=== PATIENT | female | born 1990 | race Caucasian/White ===

== ENCOUNTER 2016-06-17 11:53 | Observation (INO) ==
[2016-06-17] MEDS ORDERED: Ammonia Inhalant AMPUL ONE (12:05)
[2016-06-17] MEDS ORDERED: *HR* LORazepam 2 MG/ML VIAL ONE ×2 (12:18→15:21)
--- NOTE | 2016-06-17 12:20 | Emergency Department Note ---
Disposition Clinical Impression: Seizure Disposition: Admitted As Inpatient Seizure HPI - General Chief Complaint: ED Seizure Stated Complaint: seizure Time Seen by Provider: 06/17/16 12:00 Source: patient, EMS Limitations: no limitations Nursing Notes Reviewed: Yes Vital Signs Reviewed: Yes - History of Present Illness HPI Narrative: Mrs. Erickson, a 25yo female, presents from work via EMS with reports of seizure activity. 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 Hx Postural Orthostatic Tachycardia Syndrome. Patient's friend, Nuzhat, is bedside. Per Nuzhat, patient had 2 seizures at school. Per EMS, they were witnissed by a fork lift technician at school - described as tonic- clonic with post-ictal state. Patient had a 3rd seizure as EMS was loading her onto the gurney. They described tonic-clonic with left sided posturing. Spoke with the patient's husbandvia phone, Del. Patient has had seizures 1-2x/ year x 8yrs. Currently unmedicated. Has had neurology work-up which did not find a cause. Neurologist = Dr. Ta. - Related Data Home Medications Medication Instructions Recorded Confirmed Acyclovir [Zovirax] 800 mg PO BID PRN 10/31/15 06/17/16 Citalopram Hydrobromide 40 mg PO DAILY 10/31/15 06/17/16 [Citalopram HBr] LORazepam [Ativan] 0.5 mg PO HS 10/31/15 06/17/16 Norgestimate-Ethinyl Estradiol 1 each PO DAILY 10/31/15 06/17/16 [Sprintec 28 Day Tablet] Acetaminophen [Tylenol] 1,000 mg PO Q6HR PRN 06/17/16 06/17/16 Levocetirizine Dihydrochloride 5 mg PO QPM 06/17/16 06/17/16 [Xyzal] Modafinil [Provigil] 100 mg PO BID 06/17/16 06/17/16 Allergies Allergy/AdvReac Type Severity Reaction Status Date / Time Penicillins Allergy Rash Verified 02/24/15 07:40 Limitations: ROS unobtainable due to patients medical condition Past Medical History - Past Medical History Medical history: Reports: non-contributory, asthma, seizures, other Surgical history: Reports: other Psychiatric history: Reports: depression EXERCISE EQUIPMENT SPECIALIST history: Reports: no EXERCISE EQUIPMENT SPECIALIST history - Social History Smoking Status: Never smoker Smokeless Tobacco Status: No Alcohol use: Reports: occasionally Drug use: Reports: none Physical Exam General: Patient is post-ictal (not alert, not oriented, unable to answer questions) and in no acute distress. HEENT: No facial asymmetry. Head is normocephalic and atraumatic. PERRLA, EOMI. Nasal turbinates moist and pink. Trachea midline. Cardiovascular: Heart regular rate and rhythm without clicks, rubs, gallops, or murmurs. No JVD. PMI nondisplaced. Respiratory: Symmetric chest rise with good respiratory effort. Bilateral breath sounds are clear without wheezing, crackles, or rhonchi. Abdomen: Bowel sounds present normoactive x-4 quadrants. Abdomen is soft, nondistended, and nontender. No organomegaly noted. Musculoskeletal: Patient spontaneously moves all extremities. Psych: Patient's affect is appropriate for situation. - General Limitations: no limitations General appearance: lethargic Course Course Narrative: Will work patient up for both seizure and sepsis (given her fever). On presentation, patient post-ictal - no response to aggressive sternal rub, no response to peripheral IV insertion, did not protect herself with arm drop onto head/face. PAtient awoke after several seconds of smelling salts - she was very confused wtih fearful look in her eyes, was non-verbal (could not tell us her name or her husbands name), but would somewhat respond to simple commands ( i.e. squeeze my hand). Patient had a 4th seizure while in the ED - began with patient staring straight at ceiling, tonic clonic rhythmic symmetric, left sided posturing, regular deep breathing. 12:23 Called patient's . He is able to leave work at 2:15pm. Patient has had seizures 1-2x/year for the past 8 years. She is followed by Dr. Ta Ashley neurology. Has had negative workup in the past. Is not currently medicated for seizure. Discussed with Del our concern for her fever plus seizure. We discussed indications, contraindications, risks, and benefits of lumbar puncture. He verbally agrees to allow the procedure. 14:[address] head without contrast returned showing no acute abnormalities. Repeated patient's temperature with oral thermometer; she was afebrile. After checking, her initial temperature which showed a fever was taken by temporal thermometer. Given the lack of reliability of a temporal thermometer I do not trust that measurement. She did received single dose of empiric antibiotics and did not receive any acetaminophen or ibuprofen. Patient does have intermittent unmedicated history of seizure for which today's events are by far the most severe, I do not trust her initial temperature taken by forehead and do trust repeat temperature by mouth. Because repeat temperature was afebrile, my suspicion for central nervous system infection is substantially reduced. Thus, I will not perform a lumbar puncture at this time as the risks in this afebrile patient outweigh the benefits. We will discuss this with the patient' s once he arrives. 14:30 Spoke with patient's at bedside regarding our findings thus far as well as the patient's afebrile state. He agrees to not perform a lumbar puncture at this time. Patient is awake, oriented, answering questions appropriately, very fatigued. She is neurologically intact on repeat physical exam at this time. We will page Dr. Soler for recommendations on admission for further workup versus discharge with [facility]. 15:[address] Ta: recommends admission to hospitalist with neuro following. Loading dose of dilantin 1g IV today followed by 300mg IV QDaily maintenance beginning tomorrow. Also recommends MRI and EEG. Vital Signs Temperature 101.1 F H 06/17/16 11:56 Pulse Rate 72 06/17/16 11:56 Respiratory Rate 12 06/17/16 11:56 Blood Pressure 137/92 06/17/16 11:56 O2 Sat by Pulse Oximetry 98 06/17/16 11:56 Temperature 97.9 F 06/17/16 17:15 Pulse Rate 95 06/17/16 17:15 Respiratory Rate 15 06/17/16 17:15 Blood Pressure 113/73 06/17/16 17:15 O2 Sat by Pulse Oximetry 99 06/17/16 17:15 Oxygen Delivery Oxygen Delivery Room Air Seizure - Lab Data Result diagrams: 06/17/16 12:32 06/17/16 12:32 Lab Results 06/17/16 06/17/16 06/17/16 Range/Units 12:00 12:00 12:01 WBC (4.3-11.1) K/mcL RBC (3.82-4.97) M/mcL Hgb (11.5-15.4) g/dL Hct (35.3-44.9) % MCV (83.0-100.0) fL MCH (28.0-33.3) pg MCHC (31.6-35.5) g/dL RDW (11.5-14.5) % Plt Count (140-400) K/mcL MPV (9.4-12.4) fL Immature Gran % (0-4) % Seg Neutrophils % % Lymphocytes % % Monocytes % % Eosinophils % % Basophils % % Neutrophils # (1.6-8.9) K/mcL Lymphocytes # (0.6-4.6) K/mcL Monocytes # (0.0-1.3) K/mcL Eosinophils # (0.0-0.6) K/mcL Basophils # (0.0-0.2) K/mcL PT (9.4-12.1) Seconds INR APTT (26.0-36.0) Seconds Sodium (136-145) mEq/L Potassium (3.5-4.5) mEq/L Chloride (98-109) mEq/L Carbon Dioxide (19-29) mEq/L BUN (7-20) mg/dL Creatinine (0.57-1.11) mg/dL Est GFR ( Amer) (> 60) Est GFR (Non-Af Amer) (> 60) BUN/Creatinine Ratio (6-26) Glucose (70-99) mg/dL POC Glucose 101 H (58-89) Calculated Osmolality (280-300) Lactic Acid (0.5-2.2) mmol/L Calcium (8.6-10.8) mg/dL Phosphorus (2.3-4.7) mg/dL Magnesium (1.6-2.6) mg/dL Urine Color Yellow (Yellow) Urine Clarity Clear (Clear) Urine pH 7.5 (5.0-8.0) pH Units Ur Specific [place] 1.012 (1.010-1.025) Urine Protein Negative (Neg-Trace) mg/dL Urine Glucose (UA) Normal (Normal) mg/dL Urine Ketones Negative (Negative) mg/dL Urine Blood Negative (Negative) Urine Nitrite Negative (Negative) Urine Bilirubin Negative (Negative) Urine Urobilinogen Normal (Normal) mg/dL Ur Leukocyte Esterase Negative (Negative) Urine Opiates Screen Negative (Wlyldj=232) ng/mL Ur Barbiturates Screen Negative (Wjaxbt=617) ng/mL Ur Phencyclidine Scrn Negative (Cutoff=25) ng/mL Ur Amphetamines Screen Negative (Tloocb=3965) ng/mL U Benzodiazepines Scrn Negative (Unibeo=579) ng/mL Urine Cocaine Screen Negative (Cutoff= 300) ng/mL U Marijuana (THC) Screen Negative (Cutoff = 50) ng/mL 06/17/16 06/17/16 06/17/16 Range/Units 12:32 12:32 13:25 WBC 6.4 (4.3-11.1) K/mcL RBC 4.32 (3.82-4.97) M/mcL Hgb 13.4 (11.5-15.4) g/dL Hct 38.7 (35.3-44.9) % MCV 89.6 (83.0-100.0) fL MCH 31.0 (28.0-33.3) pg MCHC 34.6 (31.6-35.5) g/dL RDW 11.9 (11.5-14.5) % Plt Count 234 (140-400) K/mcL MPV 9.5 (9.4-12.4) fL Immature Gran % 0.2 (0-4) % Seg Neutrophils % 67.5 % Lymphocytes % 23.5 % Monocytes % 5.5 % Eosinophils % 2.8 % Basophils % 0.5 % Neutrophils # 4.3 (1.6-8.9) K/mcL Lymphocytes # 1.5 (0.6-4.6) K/mcL Monocytes # 0.4 (0.0-1.3) K/mcL Eosinophils # 0.2 (0.0-0.6) K/mcL Basophils # 0.0 (0.0-0.2) K/mcL PT 11.7 (9.4-12.1) Seconds INR 1.1 APTT 29.7 (26.0-36.0) Seconds Sodium 137 (136-145) mEq/L Potassium 4.2 (3.5-4.5) mEq/L Chloride 109 (98-109) mEq/L Carbon Dioxide 19 (19-29) mEq/L BUN 12 (7-20) mg/dL Creatinine 0.83 (0.57-1.11) mg/dL Est GFR ( Amer) > 60 (> 60) Est GFR (Non-Af Amer) > 60 (> 60) BUN/Creatinine Ratio 14 (6-26) Glucose 96 (70-99) mg/dL POC Glucose (58-89) Calculated Osmolality 284 (280-300) Lactic Acid (0.5-2.2) mmol/L Calcium 9.1 (8.6-10.8) mg/dL Phosphorus (2.3-4.7) mg/dL Magnesium (1.6-2.6) mg/dL Urine Color (Yellow) Urine Clarity (Clear) Urine pH (5.0-8.0) pH Units Ur Specific [place] (1.010-1.025) Urine Protein (Neg-Trace) mg/dL Urine Glucose (UA) (Normal) mg/dL Urine Ketones (Negative) mg/dL Urine Blood (Negative) Urine Nitrite (Negative) Urine Bilirubin (Negative) Urine Urobilinogen (Normal) mg/dL Ur Leukocyte Esterase (Negative) Urine Opiates Screen (Rxgjrp=308) ng/mL Ur Barbiturates Screen (Dlybjw=729) ng/mL Ur Phencyclidine Scrn (Cutoff=25) ng/mL Ur Amphetamines Screen (Lsvxqq=5475) ng/mL U Benzodiazepines Scrn (Frciow=933) ng/mL Urine Cocaine Screen (Cutoff= 300) ng/mL U Marijuana (THC) Screen (Cutoff = 50) ng/mL 06/17/16 06/17/16 06/17/16 Range/Units 13:25 13:25 15:52 WBC (4.3-11.1) K/mcL RBC (3.82-4.97) M/mcL Hgb (11.5-15.4) g/dL Hct (35.3-44.9) % MCV (83.0-100.0) fL MCH (28.0-33.3) pg MCHC (31.6-35.5) g/dL RDW (11.5-14.5) % Plt Count (140-400) K/mcL MPV (9.4-12.4) fL Immature Gran % (0-4) % Seg Neutrophils % % Lymphocytes % % Monocytes % % Eosinophils % % Basophils % % Neutrophils # (1.6-8.9) K/mcL Lymphocytes # (0.6-4.6) K/mcL Monocytes # (0.0-1.3) K/mcL Eosinophils # (0.0-0.6) K/mcL Basophils # (0.0-0.2) K/mcL PT (9.4-12.1) Seconds INR APTT (26.0-36.0) Seconds Sodium (136-145) mEq/L Potassium (3.5-4.5) mEq/L Chloride (98-109) mEq/L Carbon Dioxide (19-29) mEq/L BUN (7-20) mg/dL Creatinine (0.57-1.11) mg/dL Est GFR ( Amer) (> 60) Est GFR (Non-Af Amer) (> 60) BUN/Creatinine Ratio (6-26) Glucose (70-99) mg/dL POC Glucose (58-89) Calculated Osmolality (280-300) Lactic Acid 1.3 1.2 (0.5-2.2) mmol/L Calcium (8.6-10.8) mg/dL Phosphorus 2.3 (2.3-4.7) mg/dL Magnesium 1.7 (1.6-2.6) mg/dL Urine Color (Yellow) Urine Clarity (Clear) Urine pH (5.0-8.0) pH Units Ur Specific [place] (1.010-1.025) Urine Protein (Neg-Trace) mg/dL Urine Glucose (UA) (Normal) mg/dL Urine Ketones (Negative) mg/dL Urine Blood (Negative) Urine Nitrite (Negative) Urine Bilirubin (Negative) Urine Urobilinogen (Normal) mg/dL Ur Leukocyte Esterase (Negative) Urine Opiates Screen (Gvilco=569) ng/mL Ur Barbiturates Screen (Uvcjfv=236) ng/mL Ur Phencyclidine Scrn (Cutoff=25) ng/mL Ur Amphetamines Screen (Lfixvs=0967) ng/mL U Benzodiazepines Scrn (Rvwizl=651) ng/mL Urine Cocaine Screen (Cutoff= 300) ng/mL U Marijuana (THC) Screen (Cutoff = 50) ng/mL - EKG Data EKG attestation: Yes I reviewed and interpreted this EKG. EKG results narrative: EKG dated 06/17/16 at 4.01 shows sinus rhythm with a rate of 84. Normal intervals. Normal axis. Nonspecific ST-T changes. Compared to previous dated 01/24/2013 at 17:31 showed no acute ischemic changes in comparison. Critical Care Time Critical Care Time: Yes Total Critical Care Time: 35 Attestation: Critical care performed: Time is exclusive of separately billable procedures. Time includes: direct patient care, patient reassessment, coordination of patient care, interpretation of data (laboratory data, radiology data, and respiratory data), review of patient's medical records, medical consultation and documentation of patient care. Procedures included in critical care time: Procedures excluded from critical care time:
[2016-06-17] MEDS ORDERED: 0.9 % Sodium Chloride 1,000 ML IVC ONE (12:21)
--- NOTE | 2016-06-17 12:27 | Emergency Department Note ---
START Narrative - START START: I examined this patient and my medical decision-making was reviewed with the [employer] OFFICE INSTALLER/PA/Advanced Practice Nurse/Resident Physician. I agree with the documented findings, disposition and treatment plan as described except to the extent set forth below. Patient presents to the emergency department with a chief complaint of seizure. 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 She had one after arrival here. Described as generalized shaking. She never woke up fully in between. On examination she is altered. Not speaking. Garza in. Shortly after arrival she did have a full tonic-clonic seizure. Abdomen soft lungs clear. She is noted to be febrile 101. Plan. Septic workup. Concern because she does seizure with her fever. Discussing lumbar puncture with her significant other at this time. Patient reevaluated. Lumbar puncture deferred as the patient is not febrile. Her initial temperature was taken with a temporal thermometer and is felt to be inaccurate. Her labs unremarkable. Her lactates normal. Her white count is normal. There is no left shift. Repeat temperature orally is 98. Patient discussed with neurology who will admit. She does have a documented history of seizures. Loading with Dilantin at this time.
[2016-06-17 12:40] LABS: Basophils % 0.5 %; Eosinophils # 0.2 K/mcL (0.0-0.6); Eosinophils % 2.8 %; Hematocrit 38.7 % (35.3-44.9); Hemoglobin 13.4 g/dL (11.5-15.4); Immature Granulocytes % 0.2 % (0-4); Lymphocytes # 1.5 K/mcL (0.6-4.6); Lymphocytes % 23.5 %; Mean Corpuscular HGB Conc 34.6 g/dL (31.6-35.5); Mean Corpuscular Volume 89.6 fL (83.0-100.0); Mean Platelet Volume 9.5 fL (9.4-12.4); Monocytes # 0.4 K/mcL (0.0-1.3); Monocytes % 5.5 %; Neutrophils # 4.3 K/mcL (1.6-8.9); Platelet Count 234 K/mcL (140-400); Red Blood Count 4.32 M/mcL (3.82-4.97); Red Cell Distribution Width 11.9 % (11.5-14.5); Segmented Neutrophils % 67.5 %
[2016-06-17 12:52] LABS: BUN/Creatinine Ratio 14 (6-26); Blood Urea Nitrogen 12 mg/dL (7-20); Calcium 9.1 mg/dL (8.6-10.8); Carbon Dioxide 19 mEq/L (19-29); Chloride 109 mEq/L (98-109); Glucose 96 mg/dL (70-99); Osmolality,Calculated 284 (280-300); Potassium 4.2 mEq/L (3.5-4.5); Sodium 137 mEq/L (136-145); eGFR For African Americans > 60 (> 60); eGFR For Non-African Americans > 60 (> 60)
[2016-06-17 13:30] LABS: INR 1.1; Prothrombin Time 11.7 Seconds (9.4-12.1)
[2016-06-17 13:32] LABS: Activated Partial Thrombo Time 29.7 Seconds (26.0-36.0)
[2016-06-17 14:04] LABS: Magnesium 1.7 mg/dL (1.6-2.6); Phosphorous 2.3 mg/dL (2.3-4.7)
[2016-06-17 14:42] LABS: Bilirubin,Urine Negative (Negative); Blood,Urine Negative (Negative); Clarity,Urine Clear (Clear); Color,Urine Yellow (Yellow); Glucose,Urine (UA) Normal (Normal); Ketones,Urine Negative (Negative); Leukocyte Esterase,Urine Negative (Negative); Nitrite,Urine Negative (Negative); PH,Urine 7.5 pH Units (5.0-8.0); Protein,Urine Negative (Neg-Trace); Specific Gravity,Urine 1.012 (1.010-1.025); Urobilinogen,Urine Normal (Normal)
[2016-06-17 14:49] LABS: Amphetamine Screen,Urine Negative ng/mL (Cutoff=1000); Barbiturate Screen,Urine Negative ng/mL (Cutoff=200); Benzodiazepines Screen,Urine Negative ng/mL (Cutoff=200); Cannabinoid Screen,Urine Negative ng/mL (Cutoff = 50); Cocaine Screen,Urine Negative ng/mL (Cutoff= 300); Opiate Screen,Urine Negative ng/mL (Cutoff=300); Phencyclidine Screen,Urine Negative ng/mL (Cutoff=25)
--- NOTE | 2016-06-17 14:52 | Electrocardiograph Report ---
[facility] Test Date: 2016-06-17 Pat Name: Lisa Lechuga Department: 105 Room: Gender: F Rn Radiation Oncology: PEDRO : 1990 Requested By: Rambo Crabtree Order Number: [id number] Reading MD: Matias Cutler MD Measurements Intervals [place] Rate: 84 P: 40 MA: 130 QRS: 50 QRSD: 81 T: 37 QT: 399 QTc: 439 Interpretive Statements SINUS RHYTHM WITH SINUS ARRHYTHMIA poor r wave progression Electronically Signed On 06-17-16 14:51:12 EST by Matias Cutler MD
[2016-06-17] MEDS ORDERED: *HR* LORazepam 2 MG/ML VIAL IVP ONE ×2 (15:20→18:34)
[2016-06-17] MEDS ORDERED: Phenytoin 1,000 MG in SYRINGE 1 EACH IVPB ONE (15:21)
[2016-06-17] MEDS ORDERED: Acetaminophen 325 MG TABLET PO PRN (17:12)
[2016-06-17] MEDS ORDERED: Ondansetron 4 MG/2 ML VIAL IVP PRN (17:12)
[2016-06-17] MEDS ORDERED: Naloxone 0.4 MG/ML INJ IVP PRN (17:12)
[2016-06-17] MEDS ORDERED: MOM Conc 10 ML UD.LIQ PO PRN (17:12)
[2016-06-17] MEDS ORDERED: *HR* HYDROcodone/Acet 5/325 mg TABLET PO PRN (17:12)
--- NOTE | 2016-06-17 17:22 | Internal Med History&Physical ---
<Thu Retana Ricco - Last Filed: 06/17/16 17:17> Date of Encounter: 06/17/16 Time of Encounter: 16:30 Assessment and Plan (1) Breakthrough seizure Current visit: Yes Status: Chronic Pt had 3 seizures at work and 2 while in the ED. Witness describes them as tonic clonic. VS wnl, with the exception of initial temp in ED of 101.1 temporal and HR of 130 on arrival to ED. Pt vs stable during exam, pulse 94 and NSR on bedside monitor, BP 115/61, resps approx 12, and pt is 97% on room air. Pt has not been medicated for seizures in the past, despite having 1-2/year for the last 8 years. relates that in 2009 pt had a "several day EEG" that revealed no new results. Pt also had recent sleep study and was placed on Provigil for hypersomnia. Seizure precautions Cardiac monitoring Keppra 500mg po bid Neurology consult IR consult for lumbar puncture Internal Medicine - H&P: HPI Admitted From: Home Plans for Post Hospital Care: Home History of present illness: Ms. Lechuga is a 25 year old female with h/o seizures, gastric ulcer with hemorrhage, blood loss anemia, and COSTELLO, who presents to ED today with 3 seizures while at work. Pt had 2 more while in ED. REceived total of 6mg Ativan IV. Pt is slightly arouseable to physical stimuli, but is drowsy. at answers all questions. Pt has had 1-2 seizures every year for the last 8 yrs, no known cause. states that pt sees Dr. Ta here at [place]. Recent sleep study results with possible narcolepsy and pt was placed on Provigil. states that is her only recent change and that sometimes the seizures can be triggered by stress, however he denies any changes in pt's stress level recently. Pt received Dilantin 1 gram IV and Rocephin 2 grams in ED. Rocephin for recorded fever. denies recent illness. Past Med Surg Social Fam HX - Past Medical History Medical history: non-contributory, asthma, seizures, other Psychiatric history: depression - Past Surgical History Surgical History: other - Social History Smoking Status: Never smoker Smokeless Tobacco Status: No Alcohol use: occasionally Drug use: none - Family History Grandfather Hx Family Cardiac Disorders: Yes Hx Family Cancer: Yes (colon) Internal Medicine - H&P: Meds Acyclovir [Zovirax] 800 mg PO BID PRN 10/31/15 [History] Citalopram Hydrobromide [Citalopram HBr] 40 mg PO DAILY 10/31/15 [History] LORazepam [Ativan] 0.5 mg PO HS 10/31/15 [History] Norgestimate-Ethinyl Estradiol [Sprintec 28 Day Tablet] 1 each PO DAILY [History] Acetaminophen [Tylenol] 1,000 mg PO Q6HR PRN 06/17/16 [History] Levocetirizine Dihydrochloride [Xyzal] 5 mg PO QPM 06/17/16 [History] Modafinil [Provigil] 100 mg PO BID 06/17/16 [History] Allergies Penicillins Allergy (Verified 02/24/15 07:40) Rash ROS unobtainable: due to mental status All Systems PM: A 10-system review of systems was performed and is negative for pertinent findings except as documented above in the HPI. ROS per family - Constitutional Constitutional: as per HPI - Constitutional Vitals: Temp Pulse Resp BP Pulse Ox 97.9 F 95 15 113/73 99 06/17/16 17:15 06/17/16 17:15 06/17/16 17:15 06/17/16 17:15 06/17/16 17:15 General appearance: Present: no acute distress Exam: Pt sleeping through exam. - Head Head exam: Present: atraumatic - Eye Eye exam: Present: PERRL Additional comments: 3mm sluggish - ENT ENT exam: Present: mucous membranes moist, normal external ear exam - Neck Neck exam general surgery: Present: trachea midline. Absent: lymphadenopathy, thyromegaly - Respiratory Respiratory exam: Present: CTAB. Absent: decreased breath sounds, rhonchi, stridor, wheezes - Cardiovascular Cardiovascular exam: Present: RRR, +S1, +S2 - GI/Abdominal GI/Abdominal exam: Present: normal bowel sounds, soft - Neurological Exam Additional comments: Pt sleeps throughout. Does open eyes once, briefly to light sternal rub, looks around, back to sleep. Internal Med - H&P Results - Labs CBC & Chem 7: 06/17/16 12:32 06/17/16 12:32 <Rony Sheffield T - Last Filed: 06/17/16 21:53> Date of Encounter: 06/17/16 Internal Medicine - H&P: HPI History of present illness: Ms. Lechuga is a 25 year old female All Systems PM: A 10-system review of systems was performed and is negative for pertinent findings except as documented above in the HPI. - Constitutional Vitals: Temp Pulse Resp BP Pulse Ox 97.9 F 95 15 113/73 99 06/17/16 17:15 06/17/16 17:15 06/17/16 17:15 06/17/16 17:15 06/17/16 17:15 Internal Med - H&P Results - Labs CBC & Chem 7: 06/17/16 12:32 06/17/16 12:32 - Attending Attestation I have independently interviewed and examined this patient, I have discussed plan of care. Patient's is at the bedside. 25-year-old female with history of seizures not on medications, prior history of GI bleed secondary to bleeding gastric ulcer. Patient has had episodes of 6 tonic-clonic seizures prior to my review. 3 seizures at school and 3 in the ER. At time of review she is post-icta. Opens eye to sternal rubs, has a normal speech, pupils are round and reactive bilaterally, neck is supple, she moves all extremities equally. Unable to perform Kernig's or Brudzinski sign due to patient's lethargy. At time of review, she had received a total of 6 mg of Ativan. Chest, heart, abdomen exam unremarkable. Labs and imaging reviewed CBC, chemistry, urine analysis, urine toxicology: Normal. Chest x-ray and head CT is unremarkable for any acute processes. Assessment and plan Status epilepticus, she already received Dilantin in the ER, Load with Kemadalynra, transferred to the ICU for closer monitoring, patient needs close monitoring she is high risk of respiratory failure from inability to control her airways, multiple doses of Ativan. IV Ativan when necessary seizures. 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
[2016-06-17] MEDS ORDERED: Loratadine 10 MG TABLET PO SCH (18:00)
[2016-06-17] MEDS ORDERED: levETIRAcetam 250 MG TABLET PO SCH (18:00)
[2016-06-17] MEDS ORDERED: *HR* LORazepam 2 MG/ML VIAL IVP STA (18:30)
[2016-06-17] MEDS: Vancomycin 1,000 MG in D5% in Water 250 ML IVPB SCH (20:55)
[2016-06-17] MEDS ORDERED: *HR* LORazepam 0.5 MG TABLET PO SCH (21:00)
[2016-06-18 04:21] LABS: Basophils % 0.2 %; Eosinophils # 0.1 K/mcL (0.0-0.6); Eosinophils % 1.4 %; Hematocrit 36.6 % (35.3-44.9); Hemoglobin 12.4 g/dL (11.5-15.4); Immature Granulocytes % 0.3 % (0-4); Lymphocytes # 1.5 K/mcL (0.6-4.6); Lymphocytes % 16.7 %; Mean Corpuscular HGB Conc 33.9 g/dL (31.6-35.5); Mean Corpuscular Hemoglobin 31.2 pg (28.0-33.3); Mean Corpuscular Volume 92.2 fL (83.0-100.0); Mean Platelet Volume 9.5 fL (9.4-12.4); Monocytes # 0.5 K/mcL (0.0-1.3); Monocytes % 5.9 %; Neutrophils # 6.8 K/mcL (1.6-8.9); Platelet Count 211 K/mcL (140-400); Red Blood Count 3.97 M/mcL (3.82-4.97); Red Cell Distribution Width 11.9 % (11.5-14.5); Segmented Neutrophils % 75.5 %
[2016-06-18 04:34] LABS: BUN/Creatinine Ratio 12 (6-26); Blood Urea Nitrogen 9 mg/dL (7-20); Calcium 8.5 mg/dL (8.6-10.8); Carbon Dioxide 20 mEq/L (19-29); Chloride 110 mEq/L (98-109); Glucose 99 mg/dL (70-99); Osmolality,Calculated 283 (280-300); Sodium 137 mEq/L (136-145); eGFR For African Americans > 60 (> 60); eGFR For Non-African Americans > 60 (> 60)
[2016-06-18] MEDS: Vancomycin 1,000 MG in D5% in Water 250 ML IVPB SCH (06:01)
[2016-06-18] MEDS ORDERED: (Norgestimate-Ethinyl Estradiol [Sprintec 28 Day Tabl) PO SCH (09:00)
--- NOTE | 2016-06-18 09:22 | Neurology - Consult Note ---
Date of Encounter: 06/18/16 Time of Encounter: 09:21 Assessment and Plan (1) Seizure Current Visit: Yes Status: Acute epileptic vs non-epileptic. Obtain MRI of brain and routine EEG while in house. Keep on Levetiracetam 500mg bid. after MRI of brain and EEG the patient can be discharged home. NO driving untill neuro follow up. Follow up in neurology clinic with me in 2-3 weeks after discharge. History of Present Illness HPI: Ms. Lechuga is a 25 year old female Past Med Surg Social Fam HX - Past Medical History Medical history: non-contributory, asthma, seizures, other Psychiatric history: depression - Past Surgical History Surgical History: other - Social History Smoking Status: Never smoker Smokeless Tobacco Status: No Alcohol use: occasionally Drug use: none - Family History Grandfather Hx Family Cardiac Disorders: Yes Hx Family Cancer: Yes (colon) Medications and Allergies Acyclovir [Zovirax] 800 mg PO BID PRN 10/31/15 [History] Citalopram Hydrobromide [Citalopram HBr] 40 mg PO DAILY 10/31/15 [History] LORazepam [Ativan] 0.5 mg PO HS 10/31/15 [History] Norgestimate-Ethinyl Estradiol [Sprintec 28 Day Tablet] 1 each PO DAILY [History] Acetaminophen [Tylenol] 1,000 mg PO Q6HR PRN 06/17/16 [History] Levocetirizine Dihydrochloride [Xyzal] 5 mg PO QPM 06/17/16 [History] Modafinil [Provigil] 100 mg PO BID 06/17/16 [History] Allergies Penicillins Allergy (Verified 02/24/15 07:40) Rash All Systems: A 10-system review of systems was performed and is negative for pertinent findings except as documented above in the HPI. Physical Examination - Vital Signs Vital Signs: Initial Vital Signs Temp Pulse Resp BP Pulse Ox 101.1 F H 72 12 137/92 98 06/17/16 11:56 06/17/16 11:56 06/17/16 11:56 06/17/16 11:56 06/17/16 11:56 Results - Laboratory Findings CBC and BMP: 06/18/16 04:00 06/18/16 04:00 Abnormal lab findings: Abnormal lab results Chloride 110 mEq/L (98-109) H 06/18/16 04:00 POC Glucose 111 (58-89) H 06/17/16 19:18 Calcium 8.5 mg/dL (8.6-10.8) L 06/18/16 04:00 Consult Discharge Plan - Plan Referrals: Neli Hancock, SENIOR HYDROGEOLOGIST [Primary Care Provider] -
[2016-06-18] MEDS ORDERED: Lidocaine -MPF 1% 2 ML VIAL ID PRN (10:54)
--- NOTE | 2016-06-18 16:10 | Discharge Summary ---
Date of Encounter: 06/18/16 Time of Encounter: 13:30 - Discharge Diagnosis (1) Seizures Priority: Primary Status: Chronic (2) Pseudoseizures Priority: Secondary Status: Suspected - Discharge Medications Prescriptions: Acetaminophen [Tylenol] 500 mg PO Q6HR PRN #30 tablet PRN Reason: Pain LevETIRAcetam [Keppra] 500 mg PO BID #60 tablet Home Medications: Citalopram Hydrobromide [Citalopram HBr] 40 mg PO DAILY 10/31/15 [History] LORazepam [Ativan] 0.5 mg PO HS 10/31/15 [History] Norgestimate-Ethinyl Estradiol [Sprintec 28 Day Tablet] 1 each PO DAILY [History] Levocetirizine Dihydrochloride [Xyzal] 5 mg PO QPM 06/17/16 [History] Modafinil [Provigil] 100 mg PO BID 06/17/16 [History] Acetaminophen [Tylenol] 500 mg PO Q6HR PRN #30 tablet 06/18/16 [Rx] LevETIRAcetam [Keppra] 500 mg PO BID #60 tablet 06/18/16 [Rx] Allergies/Adverse Reactions: Allergies Penicillins Allergy (Verified 02/24/15 07:40) Rash Procedures/tests Complete & Pending: Procedures Performed prior 72 hours Category Date Time Status MR head/brain wo con [MR] Routine MRI 06/18/16 09:25 Taken Date of admission: 06/17/16 16:06 Primary care physician: Neli Hancock CNP Consults: 06/17/16 17:08 Consult to Neurology [CONS] Routine Consulting Provider: Neurology [facility] Reason for Consult: Seizures Time Notified: 17:08 Call Completed: No 06/17/16 20:58 Consult to Psychiatry [CONS] Routine Consulting Provider: Psychiat[facility] [place] Reason for Consult: Possible pseudoseizures, conversion syndrome Time Notified: 21:00 Call Completed: Yes 06/18/16 10:54 Consult to Invasive Line Access Team [CONS] Routine Reason for Consult: poor access Line Type: EPIV 06/18/16 14:09 Consult to Interpret Exam [CONS] Routine Consulting Provider: Joellen Ta Consult to Interpret Exam: Interpret EEG Discharging clinician: Scottie Bustos Anticipated date of discharge: 06/18/16 - Patient Status Disposition: Home, Self-Care Condition: Fair Functional capacity at discharge: independent ambulation Overall status at discharge: patient is progressing back to baseline - Discharge Instructions Follow Up With: Neli Hancock CNP [Primary Care Provider] - (in 1-2 weeks) Joellen Ta MD [Partnered Physician] - (2-3 weeks) Additional Instructions: Avoid Driving until you see the neurologist and are cleared - Diet and Activity Activity: return to work once cleared by your PCP/specialist Diet: regular diet Hospital course: Ms. Lechuga is a 25 year old female with a history of prior seizures presented to the ER with complaints of persistent epileptic episodes. She was noted to have seizure-like activity during her hospitalization. Neurology was consulted. They recommended MRI and EEG. The patient does follow up with neurology as outpatient and has had extensive workup for previous episodes of seizures and was found to have no focal seizure-like activity. As such she has not been on medications for seizures. Her EEG again did not show any seizure-like activity. MRI of the brain was done and it did not show any acute abnormalities. Neurology recommends starting the patient on Keppra and having her follow up with neurology in the clinic to see if she responded to this treatment. At this time the patient is stable to be discharged home. On initial presentation, there was concern for meningitis but patient does not have any meningeal signs. As such her antibiotics have been stopped. Patient was also evaluated by psychiatric and recommended follow-up with psych for management of her symptoms suggestive of obsessive-compulsive disorder and perfectionism. - Time Spent with Patient Total time spent providing and/or coordinating discharge services: Less than 30 minutes (20 min) - Constitutional Vitals: Temp Pulse Resp BP Pulse Ox 98.8 F 68 14 107/68 94 L 06/18/16 11:53 06/18/16 15:00 06/18/16 15:00 06/18/16 15:00 06/18/16 15:00 Exam: oriented but somnolent - Neck Neck exam general surgery: Present: supple, trachea midline. Absent: lymphadenopathy - Respiratory Respiratory exam: Present: CTAB. Absent: accessory muscle use, rales, rhonchi, wheezes - Cardiovascular Cardiovascular exam: Present: RRR, +S1, +S2. Absent: diastolic murmur, gallop, rubs, systolic murmur - GI/Abdominal GI/Abdominal exam: Present: normal bowel sounds, soft, no peritoneal signs. Absent: distended, tenderness - Neurological Exam Neurological exam: Present: oriented X3, no focal deficits. Absent: facial droop, speech deficit - Psychiatric Psychiatric exam: Present: flat affect - Attending Attestation This document has been at least partially created by [employer] recognition technology by Dr. Bustos. Errors in grammar, wording or other phrases may exist. If errors are found after the documentation is signed, they will be addressed individually in the addendum section of this document when appropriate.
--- NOTE | 2016-06-18 16:12 | Consult Note ---
Date of Encounter: 06/18/16 Time of Encounter: 15:00 Assessment & Recommendation (1) Breakthrough seizure Current visit: Yes Status: Chronic Assessment & Recommendation: Impression: After reviewing the available information and discussing history with patient's I believe patient condition is complex and involved seizure disorder Metabbolic, disorder and narcolepsy. Whether her seizures are epileptic or pseudoseizures has been answered by the neurology consult and she was started on anticonvulsants. I do not believe that the clinical picture of seizure, narcolepsy and hypotension are symptoms of conversion disorder. These are disorders that need to be evaluated and treated empirically. In addition to the above I would recommend individual therapy to this patient' s to address perfectionism and obsessive compulsive qualities that increases her stress level and results in increase frequency and intensity of the above symptoms. Information regarding resources for psychotherapy and psychiatric treatment would be provided to the patient by our department. Thank you for your consults and please address any questions. History of Present Illness Patient: new to practice Requesting Physician: Scottie Bustos MD Reason for consult: pseudoseizures,conversion syndrome History of present illness: Ms. Lechuga is a 25 year old female admitted to ICU for evaluation and treatment of multiple seizures. Patient was evaluated by neurology and I reviewed consults and notes in the system. Patient was started on medication for seizure Keppra. Patient also has a history of several months what is described to be as narcolepsy and was started TO treatment was Provigil twice a day. Information in this consult are mostly from the records and patient's who was available provided history patient herself was lying in bed lethargic or sleepy and could not participate in the evaluation. to me that is patient experienced one or 2 seizures. For the past several years and he described him as very brief and without any lasting effect but recently or at least this admission she had multiple. Patient also is describing recent history of narcolepsy and treatment was Provigil. Patient also told me that patient is diagnosed with RAY and hypotension. 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 Psychiatric consultation was requested to rule out pseudoseizures or conversion disorder. CC: Scottie Bustos MD Past Med Surg Social Fam HX - Past Medical History Medical history: non-contributory, asthma, seizures, other - Past Psychiatric History Psychiatric history: Reports: anxiety, depression Past psychiatric history details: no formal psychiatric treatment. Celexa was prescribed by primary care physician. Family psychiatric history: Unknown Family History of Suicide: Unknown - Past Surgical History Surgical History: other - Social History Smoking Status: Never smoker Smokeless Tobacco Status: No Alcohol use: occasionally Drug use: none - Family History Grandfather Hx Family Cardiac Disorders: Yes Hx Family Cancer: Yes (colon) Medications & Allergies Acyclovir [Zovirax] 800 mg PO BID PRN 10/31/15 [History] Citalopram Hydrobromide [Citalopram HBr] 40 mg PO DAILY 10/31/15 [History] LORazepam [Ativan] 0.5 mg PO HS 10/31/15 [History] Norgestimate-Ethinyl Estradiol [Sprintec 28 Day Tablet] 1 each PO DAILY [History] Acetaminophen [Tylenol] 1,000 mg PO Q6HR PRN 06/17/16 [History] Levocetirizine Dihydrochloride [Xyzal] 5 mg PO QPM 06/17/16 [History] Modafinil [Provigil] 100 mg PO BID 06/17/16 [History] Allergies Penicillins Allergy (Verified 02/24/15 07:40) Rash Review of Systems Psychiatric: Reports: other (pt was asleep,lethargic could not be interviewed) Mental Status Exam Additional Findings: Patient presented as young white female lying in bed lethargic and sleepy she could not be interviewed. The provided history information and answer question on her behalf. Results - Vital Signs Vital signs: Temp Pulse Resp BP Pulse Ox 98.8 F 68 14 107/68 94 L 06/18/16 11:53 06/18/16 15:00 06/18/16 15:00 06/18/16 15:00 06/18/16 15:00 - Labs Labs: Laboratory Last Values WBC 9.0 K/mcL (4.3-11.1) 06/18/16 04:00 RBC 3.97 M/mcL (3.82-4.97) 06/18/16 04:00 Hgb 12.4 g/dL (11.5-15.4) 06/18/16 04:00 Hct 36.6 % (35.3-44.9) 06/18/16 04:00 MCV 92.2 fL (83.0-100.0) 06/18/16 04:00 MCH 31.2 pg (28.0-33.3) 06/18/16 04:00 MCHC 33.9 g/dL (31.6-35.5) 06/18/16 04:00 RDW 11.9 % (11.5-14.5) 06/18/16 04:00 Plt Count 211 K/mcL (140-400) 06/18/16 04:00 MPV 9.5 fL (9.4-12.4) 06/18/16 04:00 Immature Gran % 0.3 % (0-4) 06/18/16 04:00 Seg Neutrophils % 75.5 % 06/18/16 04:00 Lymphocytes % 16.7 % 06/18/16 04:00 Monocytes % 5.9 % 06/18/16 04:00 Eosinophils % 1.4 % 06/18/16 04:00 Basophils % 0.2 % 06/18/16 04:00 Neutrophils # 6.8 K/mcL (1.6-8.9) 06/18/16 04:00 Lymphocytes # 1.5 K/mcL (0.6-4.6) 06/18/16 04:00 Monocytes # 0.5 K/mcL (0.0-1.3) 06/18/16 04:00 Eosinophils # 0.1 K/mcL (0.0-0.6) 06/18/16 04:00 Basophils # 0.0 K/mcL (0.0-0.2) 06/18/16 04:00 PT 11.7 Seconds (9.4-12.1) 06/17/16 13:25 INR 1.1 06/17/16 13:25 APTT 29.7 Seconds (26.0-36.0) 06/17/16 13:25 Sodium 137 mEq/L (136-145) 06/18/16 04:00 Potassium 4.0 mEq/L (3.5-4.5) 06/18/16 04:00 Chloride 110 mEq/L (98-109) H 06/18/16 04:00 Carbon Dioxide 20 mEq/L (19-29) 06/18/16 04:00 BUN 9 mg/dL (7-20) 06/18/16 04:00 Creatinine 0.77 mg/dL (0.57-1.11) 06/18/16 04:00 Est GFR ( Amer) > 60 (> 60) 06/18/16 04:00 Est GFR (Non-Af Amer) > 60 (> 60) 06/18/16 04:00 BUN/Creatinine Ratio 12 (6-26) 06/18/16 04:00 Glucose 99 mg/dL (70-99) 06/18/16 04:00 POC Glucose 84 (58-89) 06/18/16 09:59 Calculated Osmolality 283 (280-300) 06/18/16 04:00 Lactic Acid 1.2 mmol/L (0.5-2.2) 06/17/16 15:52 Calcium 8.5 mg/dL (8.6-10.8) L 06/18/16 04:00 Phosphorus 2.3 mg/dL (2.3-4.7) 06/17/16 13:25 Magnesium 1.7 mg/dL (1.6-2.6) 06/17/16 13:25 Urine Color Yellow (Yellow) 06/17/16 12:00 Urine Clarity Clear (Clear) 06/17/16 12:00 Urine pH 7.5 pH Units (5.0-8.0) 06/17/16 12:00 Ur Specific [place] 1.012 (1.010-1.025) 06/17/16 12:00 Urine Protein Negative mg/dL (Neg-Trace) 06/17/16 12:00 Urine Glucose (UA) Normal mg/dL (Normal) 06/17/16 12:00 Urine Ketones Negative mg/dL (Negative) 06/17/16 12:00 Urine Blood Negative (Negative) 06/17/16 12:00 Urine Nitrite Negative (Negative) 06/17/16 12:00 Urine Bilirubin Negative (Negative) 06/17/16 12:00 Urine Urobilinogen Normal mg/dL (Normal) 06/17/16 12:00 Ur Leukocyte Esterase Negative (Negative) 06/17/16 12:00 Urine Opiates Screen Negative ng/mL (Zzvrot=008) 06/17/16 12:00 Ur Barbiturates Screen Negative ng/mL (Cqeiix=681) 06/17/16 12:00 Ur Phencyclidine Scrn Negative ng/mL (Cutoff=25) 06/17/16 12:00 Ur Amphetamines Screen Negative ng/mL (Glyvto=2793) 06/17/16 12:00 U Benzodiazepines Scrn Negative ng/mL (Mtjcao=703) 06/17/16 12:00 Urine Cocaine Screen Negative ng/mL (Cutoff= 300) 06/17/16 12:00 U Marijuana (THC) Screen Negative ng/mL (Cutoff = 50) 06/17/16 12:00 Consult Discharge Plan - Plan Referrals: Neli Hancock, ASSOCIATE VICE PRESIDENT [Primary Care Provider] -
--- NOTE | 2016-06-18 16:25 | EEG/EMG/Oth Biometrics Report ---
EEG Procedure Report Date of procedure: 06/18/16 EEG Procedure: Routine EEG Procedure Note: Medication: Keppra, Ativan This EEG was acquired with standard international 10-20 electrode placement system with EKG recording. The back ground EEG activity was replaced by low amplitude fast activity symmetrical. The background activity was reactive to eye openings. Sleep stages were characterized by presence of k-complexes, vertex waves sleep spindles and delta slowing. There are no electrographic seizure identified. No focal slowing noted during the study. No epileptifrom discharged noted during the study. photic stimulation produced no abnormalities. Toward the end of the study, an episode of rhythmic muscle activity noted during the study, no other EEG correlates were seen. The EEG background is normal proceeding and following the rhythmic muscular seizure activity. Impression: normal asleep and awake EEG. One physical seizure activity not associated with EEG correlates. Clinical correlation: this EEG is consistent with non-epileptic seizure etiology. normal background EEG activity noted. Clinical correlation advised
[2016-06-18 17:04] VITALS: BP 116/71
[2016-06-18] MEDS ORDERED: Aminoglycoside Consult 1 EACH MC ONE (17:54)
== END 2016-06-18 17:55 | disposition home or self-care (01) ==
LOC: 3BNU 11:53 → EMEROO 11:53 → SUATTDRO 16:06 → 3BNU 16:55 → ICNU 19:49
PROVIDERS: ADMIT Internal Medicine; ATTEND Internal Medicine

== ENCOUNTER 2021-12-18 03:58 | Observation (INO) ==
[2021-12-18 04:36] LABS: Basophils % 0.2 %; Eosinophils # 0.2 K/mcL (0.0-0.6); Eosinophils % 2.4 %; Hematocrit 37.6 % (35.3-44.9); Hemoglobin 12.7 g/dL (11.5-15.4); Immature Granulocytes % 0.1 % (0-4); Lymphocytes # 1.5 K/mcL (0.6-4.6); Lymphocytes % 17.6 %; Mean Corpuscular HGB Conc 33.8 g/dL (31.6-35.5); Mean Corpuscular Hemoglobin 30.5 pg (28.0-33.3); Mean Corpuscular Volume 90.4 fL (83.0-100.0); Mean Platelet Volume 9.4 fL (9.4-12.4); Monocytes # 0.4 K/mcL (0.0-1.3); Monocytes % 4.1 %; Neutrophils # 6.6 K/mcL (1.6-8.9); Platelet Count 259 K/mcL (140-400); Red Blood Count 4.16 M/mcL (3.82-4.97); Red Cell Distribution Width 12.3 % (11.5-14.5); Segmented Neutrophils % 75.6 %; White Blood Count 8.8 K/mcL (4.3-11.1)
[2021-12-18 04:54] LABS: Acetaminophen 12 mcg/mL (10-20); BUN/Creatinine Ratio 10 (6-26); Blood Urea Nitrogen 9 mg/dL (6-20); Calcium 9.2 mg/dL (8.6-10.3); Carbon Dioxide 22 mEq/L (23-29); Chloride 109 mEq/L (98-107); Ethanol 20 mg/dL (Less than 10); Glucose 102 mg/dL (70-105); Osmolality,Calculated 293 (280-300); Potassium 3.4 mEq/L (3.5-5.1); Salicylate < 2.5 mg/dL (15.0-30.0); Sodium 142 mEq/L (136-145); eGFR For African Americans > 60 (> 60); eGFR For Non-African Americans > 60 (> 60)
[2021-12-18 05:19] LABS: Bilirubin,Urine Negative (Negative); Blood,Urine Negative (Negative); Clarity,Urine Clear (Clear); Color,Urine Colorless (Yellow); Glucose,Urine (UA) Normal (Normal); Ketones,Urine Negative (Negative); Leukocyte Esterase,Urine Negative (Negative); Nitrite,Urine Negative (Negative); Protein,Urine Negative (Neg-Trace); Specific Gravity,Urine 1.012 (1.010-1.025); Urobilinogen,Urine Normal (Normal)
[2021-12-18 05:30] LABS: Amphetamine Screen,Urine Negative ng/mL (Cutoff=1000); Barbiturate Screen,Urine Negative ng/mL (Cutoff=200); Benzodiazepines Screen,Urine Negative ng/mL (Cutoff=200); Cannabinoid Screen,Urine Negative ng/mL (Cutoff = 50); Cocaine Screen,Urine Negative ng/mL (Cutoff= 300); Opiate Screen,Urine Negative ng/mL (Cutoff=300); Phencyclidine Screen,Urine Negative ng/mL (Cutoff=25)
[2021-12-18 08:11] LABS: Influenza A PCR Negative (Negative); Influenza B PCR Negative (Negative); Resp. Syncytial Virus PCR Negative (Negative)
[2021-12-18 09:08] LABS: SARS-CoV-2 by PCR (In House) Negative (Negative)
[2021-12-18] MEDS ORDERED: Acetaminophen 325 MG TABLET PO ONE (13:02)
[2021-12-18] MEDS ORDERED: Haloperidol Lactate 5 MG/ML VIAL IM PRN (14:51)
[2021-12-18] MEDS ORDERED: Nicotine 2 MG GUM BC PRN (14:51)
[2021-12-18] MEDS ORDERED: *HR* LORazepam 2 MG/ML VIAL IM PRN (14:51)
[2021-12-18] MEDS ORDERED: Mag Hydrox/Al Hydrox/Simeth 30 ML UDC PO PRN (14:51)
[2021-12-18] MEDS ORDERED: MOM Conc 10 ML UD.LIQ PO PRN (14:51)
[2021-12-18] MEDS ORDERED: haloperidoL 5 MG TABLET PO PRN (14:51)
[2021-12-18] MEDS ORDERED: hydrOXYzine pamoate 25 MG CAPSULE PO PRN (14:51)
[2021-12-18] MEDS ORDERED: Ibuprofen 400 MG TABLET PO PRN (14:51)
[2021-12-18] MEDS ORDERED: *HR* LORazepam 1 MG TABLET PO PRN (14:51)
[2021-12-18] MEDS ORDERED: traZODone 50 MG TABLET PO PRN (14:51)
[2021-12-18] MEDS: Sucralfate 1 GM TABLET PO SCH (18:27)
[2021-12-18 20:38] VITALS: O2SAT 96
[2021-12-18] MEDS ORDERED: Loratadine 10 MG TABLET PO SCH (21:00)
[2021-12-19] MEDS ORDERED: Nicotine 21 MG PATCH.TD24 TD SCH (09:00)
[2021-12-19] MEDS ORDERED: Multivit/Ca/Min/Fe/FA 1 TAB TABLET PO SCH (09:00)
[2021-12-19] MEDS: Sucralfate 1 GM TABLET PO SCH (09:10)
[2021-12-19 09:20] VITALS: BP 140/80; PULSE 71; TEMP 97.9
== END 2021-12-19 11:15 | disposition home or self-care (01) ==
LOC: EMEROOARM 03:58 → 1ANU 03:58
PROVIDERS: ADMIT Psychiatry & Neurology Forensic Psychiatry; ATTEND Psychiatry & Neurology Forensic Psychiatry